=== PATIENT | female | born 1970 | race Two or more races ===

== ENCOUNTER 2025-03-10 22:05 | Emergency (ER) | payer BC ==
[2025-03-10] MEDS ORDERED: Prochlorperazine 10 MG/2 ML VIAL ONE (22:38)
[2025-03-10] MEDS ORDERED: diphenhydrAMINE 50 MG/ML VIAL ONE (22:38)
[2025-03-10 23:22] LABS: #Basophils Less than 0.03 10x3/uL (0.0-0.2); #Eosinophils 0.05 10x3/uL (0.0-0.5); #Monocytes 0.68 10x3/uL (0.0-1.1); #Neutrophils 4.00 10x3/uL (1.5-8.4); %Basophils 0.2 % (0.0-2.0); %Eosinophils 0.5 % (0.0-6.0); %Lymphocytes 56.5 % (18.0-47.0); %Monocytes 6.2 % (0.0-10.0); %Neutrophils 36.2 % (40.0-75.0); Hematocrit 41.6 % (34.9-44.5); Hemoglobin 14.3 g/dL (12.0-15.5); Mean Corpuscular Hemoglobin 29.1 pg (27.0-33.0); Mean Corpuscular Volume 84.6 fL (81.6-98.3); Platelet Count 214 10x3/uL (150-450); Red Blood Cell (RBC) Count 4.92 10x6/uL (3.90-5.03); White Blood Cell (WBC) Count 11.02 10x3/uL (3.5-10.5)
[2025-03-10 23:33] LABS: ALT (SGPT) 29 U/L (Less than 34); AST (SGOT) 30 U/L (11-34); Albumin 4.3 g/dL (3.1-4.5); Alkaline Phosphatase 94 U/L (40-110); Anion Gap 16 mmol/L (10-20); BUN (Urea Nitrogen) 12 mg/dL (9.8-20.1); Bilirubin, Total 0.3 mg/dL (0.3-1.2); Calc. Creatinine Clearance 0 mL/min (70-130); Calcium 9.8 mg/dL (7.8-10.44); Carbon Dioxide 27 mmol/L (22-29); Chloride 101 mmol/L (98-107); Globulin 3.8 g/dL (2.4-3.5); Glucose 125 mg/dL (70-105); Potassium 2.9 mmol/L (3.5-5.1); Sodium 141 mmol/L (136-145)
[2025-03-10 23:39] LABS: Troponin I 0.013 ng/mL (< 0.028)
[2025-03-11 00:47] LABS: Glucose, Urine (Dipstick) Normal (Negative); Leukocyte 25 (Negative); Protein, Urine (Dipstick) 15 mg/dl (Neg-Trace); Specific Gravity, Urine 1.010 (1.005-1.030)
[2025-03-11 00:54] LABS: Bacteria/HPF Rare-Few HPF (None Seen); CAUTI Indications for Culture Acute Hematuria; RBC/HPF 0-3 HPF (0-3); WBC/HPF 0-3 HPF (0-3)
[2025-03-11 00:55] LABS: Urine Culture Reflex No No
== END 2025-03-11 01:06 | disposition home or self-care (01) ==
LOC: CSHERS 22:05
DX: K52.9 Noninfective gastroenteritis and colitis, unspecified (principal); E86.0 Dehydration; N39.0 Urinary tract infection, site not specified
CPT/HCPCS: 71250; 74177; 80053; 81001; 83880; 84484; 85025; 87428; 93005; 96374; 96375; J0780; J1200